=== PATIENT | female | born 1950 | race Caucasian/White ===

== ENCOUNTER → 2021-03-15 10:35 | Outpatient (CLI) | payer MEDICARE, OTHER, SELFPAY ==
[2021-03-15 19:02] LABS: Add Manual Diff / Slide Review NO; Basophils Absolute Auto 0 /uL (0-100); Basophils Percent Auto 0.6 % (0-2); Eosinophils Absolute Auto 200 /uL (0-450); Hematocrit 38.5 % (36-46); Hemoglobin 12.8 g/dL (12.0-16.0); Lymphocytes Absolute Auto 1400 /uL (1100-4500); Lymphocytes Percent Auto 24.8 % (25-40); Mean Corpuscular HGB Conc 33.3 % (30-36); Mean Corpuscular Hemoglobin 28.5 PG (26-34); Mean Corpuscular Volume 85.4 fL (80-100); Monocytes Absolute Auto 400 /uL (0-900); Monocytes Percent Auto 7.1 % (3-14); Neutrophils Absolute Auto 3500 /uL (1500-7000); Neutrophils Percent Auto 63.5 % (50-75); Platelet Count 300 X10^3/uL (150-400); Red Cell Distribution Width 13.2 % (11.6-14.8); White Blood Cell Count 5.5 X10^3/uL (4.5-11.0)
[2021-03-15 19:15] LABS: Alanine Aminotransferase 13 IU/L (<35); Albumin 3.9 g/dL (3.5-5.0); Albumin Globulin Ratio 1.6 (1.0-2.8); Alkaline Phosphatase 76 U/L (38-126); Aspartate Aminotransferase 27 IU/L (14-36); BUN Creatinine Ratio 16.4 (6-22); Bilirubin Total 0.5 mg/dL (0.2-1.3); Blood Urea Nitrogen 11 mg/dL (7-17); Calcium 9.6 mg/dL (8.4-10.2); Carbon Dioxide 29 mmol/L (22-32); Chloride 105 mmol/L (98-107); Cholesterol 230 mg/dL (140-199); Estimated Glomerular Filt Rate > 60.0 mL/min (>60); Globulin 2.4 g/dL (1.7-4.1); Glucose 81 mg/dL (80-110); HDL Cholesterol 59 mg/dL (40-60); HEMOLYSIS < 15 (0-50); LDL Cholesterol Calculated 159 mg/dL (<100); Potassium 4.6 mmol/L (3.4-5.1); Sodium 140 mmol/L (137-145); Total Protein 6.3 g/dL (6.3-8.2); Triglycerides 60 mg/dL (35-150)
== END ==
PROVIDERS: Family Provider Family Medicine; PCP Family Medicine; Visit Provider Family Medicine
DX: K58.9 Irritable bowel syndrome, unspecified (principal); E78.5 Hyperlipidemia, unspecified
CPT/HCPCS: 80053; 80061; 85025

== ENCOUNTER → 2021-04-19 13:51 | Outpatient (CLI) | payer MEDICARE, OTHER, SELFPAY ==
--- NOTE | 2021-04-19 13:54 | DI.RAD.S_ITS ---
PROCEDURE: XR LUMBAR SPINE 2-3V INDICATIONS: progressive lower back pain with right-sided subjective sci TECHNIQUE: 3 views of the lumbar spine were acquired. COMPARISON: [facility] [place] [facility], XR LUMBAR SPINE FLEXION EXTENSION, 11/12/2019, 11:14. FINDINGS: Bones: 5 [id number] vertebrae are present. There is prominent leftward scoliotic curvature with apex at L3. Multilevel disc space narrowing is present. Multilevel moderate to severe foraminal narrowing is present throughout the lumbar spine. Foraminal narrowing appears more prominent when compared to 11/12/2019. No vertebral body compression fractures. No suspicious bony lesions. Soft tissues: Overlying bowel gas pattern is normal. No suspicious soft tissue calcifications. IMPRESSION: More prominent appearance of multilevel foraminal narrowing compared to prior exam. Dictated by: Consuelo Joshi M.D. on 04/19/2021 at 15:44 Approved by: Consuelo Joshi M.D. on 04/19/2021 at 15:45
--- NOTE | 2021-04-19 13:54 | DI.RAD.S_ITS ---
PROCEDURE: XR THORACIC SPINE 3V INDICATIONS: progressive lower back pain with right-sided subjective sci TECHNIQUE: 3 views of the thoracic spine were acquired. COMPARISON: None. FINDINGS: Bones: No fractures or dislocations. No suspicious bony lesions. 12 pairs of ribs are noted, and appear intact where visualized. Scoliotic curvature is present with apex at L3. Multilevel degenerative narrowing is present within the thoracic spine. Soft tissues: No paravertebral stripe thickening. IMPRESSION: Scoliotic curvature as above. Dictated by: oCnsuelo Joshi M.D. on 04/19/2021 at 15:46 Approved by: Consuelo Joshi M.D. on 04/19/2021 at 15:47
[2021-04-19 16:15] LABS: C-Reactive Protein Quant 1.3 mg/dL (<1.0)
[2021-04-19 16:21] LABS: Rheumatoid Factor < 8.6 IU/mL (<12.0)
== END ==
PROVIDERS: Family Provider Family Medicine; PCP Family Medicine; Referring Provider Family Medicine; Visit Provider Family Medicine
DX: M41.9 Scoliosis, unspecified (principal); M43.06 Spondylolysis, lumbar region; R26.89 Other abnormalities of gait and mobility
CPT/HCPCS: 36415; 72072; 72100; 86140; 86430

== ENCOUNTER → 2021-07-26 08:12 | Outpatient (CLI) | payer MEDICARE, OTHER, SELFPAY ==
[2021-07-26 19:50] LABS: COVID19 - ORCAS (NP or Nasal) Negative (Negative)
== END ==
PROVIDERS: Family Provider Family Medicine; PCP Family Medicine; Visit Provider Physician Assistant Medical
DX: Z20.822 Contact with and (suspected) exposure to COVID-19 (principal)
CPT/HCPCS: C9803; U0003

== ENCOUNTER → 2021-09-19 09:29 | Outpatient (CLI) | payer MEDICARE, OTHER, SELFPAY ==
[2021-09-19 19:39] LABS: Cholesterol 155 mg/dL (140-199); HDL Cholesterol 55 mg/dL (40-60); LDL Cholesterol Calculated 85 mg/dL (<100); Triglycerides 76 mg/dL (35-150)
== END ==
PROVIDERS: Family Provider Family Medicine; PCP Family Medicine; Visit Provider Family Medicine
DX: E78.00 Pure hypercholesterolemia, unspecified (principal)
CPT/HCPCS: 80061

== ENCOUNTER → 2021-12-13 11:20 | Outpatient (CLI) | payer MEDICARE, OTHER, SELFPAY ==
[2021-12-13 19:06] LABS: Add Manual Diff / Slide Review NO; Basophils Absolute Auto 0 /uL (0-100); Basophils Percent Auto 0.6 % (0-2); Eosinophils Absolute Auto 300 /uL (0-450); Eosinophils Percent Auto 4.1 % (2-4); Hematocrit 38.7 % (36-46); Hemoglobin 13.1 g/dL (12.0-16.0); Lymphocytes Absolute Auto 1800 /uL (1100-4500); Lymphocytes Percent Auto 26.2 % (25-40); Mean Corpuscular HGB Conc 33.9 % (30-36); Mean Corpuscular Hemoglobin 29.1 PG (26-34); Mean Corpuscular Volume 85.8 fL (80-100); Monocytes Absolute Auto 500 /uL (0-900); Monocytes Percent Auto 7.3 % (3-14); Neutrophils Absolute Auto 4200 /uL (1500-7000); Neutrophils Percent Auto 61.8 % (50-75); Platelet Count 283 X10^3/uL (150-400); Red Blood Cell Count 4.51 X10^6/uL (4.0-5.2); Red Cell Distribution Width 13.5 % (11.6-14.8); White Blood Cell Count 6.7 X10^3/uL (4.5-11.0)
[2021-12-13 19:25] LABS: Alanine Aminotransferase 14 IU/L (<35); Albumin Globulin Ratio 1.6 (1.0-2.8); Alkaline Phosphatase 67 U/L (38-126); Aspartate Aminotransferase 27 IU/L (14-36); BUN Creatinine Ratio 12.3 (6-22); Bilirubin Total 0.5 mg/dL (0.2-1.3); Blood Urea Nitrogen 8 mg/dL (7-17); Calcium 9.2 mg/dL (8.4-10.2); Carbon Dioxide 31 mmol/L (22-32); Chloride 105 mmol/L (98-107); Estimated Glomerular Filt Rate > 60.0 mL/min (>60); Globulin 2.5 g/dL (1.7-4.1); Glucose 86 mg/dL (80-110); HEMOLYSIS < 15 (0-50); Potassium 4.1 mmol/L (3.4-5.1); Sodium 140 mmol/L (137-145); Total Protein 6.5 g/dL (6.3-8.2)
[2021-12-13 19:55] LABS: TSH w/ Reflex to FT4 2.12 uIU/mL (0.47-4.68)
== END ==
PROVIDERS: Family Provider Family Medicine; PCP Family Medicine; Visit Provider Physician Assistant
DX: K58.9 Irritable bowel syndrome, unspecified (principal); E78.5 Hyperlipidemia, unspecified; R63.4 Abnormal weight loss
CPT/HCPCS: 80053; 84443; 85025

== ENCOUNTER → 2021-12-19 14:43 | Outpatient (CLI) | payer MEDICARE, OTHER, SELFPAY | PROVIDERS: Family Provider Family Medicine; PCP Family Medicine; Referring Provider Physician Assistant; Visit Provider Physician Assistant | DX: M81.0 Age-related osteoporosis without current pathological fracture (principal); Z13.820 Encounter for screening for osteoporosis; Z78.0 Asymptomatic menopausal state | CPT/HCPCS: 77080 ==

== ENCOUNTER → 2022-01-03 09:59 | Outpatient (CLI) | payer MEDICARE, OTHER, SELFPAY ==
[2022-01-03 18:58] LABS: Add Manual Diff / Slide Review NO; Basophils Absolute Auto 0 /uL (0-100); Basophils Percent Auto 0.6 % (0-2); Eosinophils Absolute Auto 200 /uL (0-450); Eosinophils Percent Auto 4.2 % (2-4); Hematocrit 37.1 % (36-46); Hemoglobin 12.7 g/dL (12.0-16.0); Lymphocytes Absolute Auto 1400 /uL (1100-4500); Lymphocytes Percent Auto 26.4 % (25-40); Mean Corpuscular HGB Conc 34.1 % (30-36); Mean Corpuscular Hemoglobin 29.2 PG (26-34); Mean Corpuscular Volume 85.5 fL (80-100); Monocytes Absolute Auto 400 /uL (0-900); Monocytes Percent Auto 7.4 % (3-14); Neutrophils Absolute Auto 3200 /uL (1500-7000); Neutrophils Percent Auto 61.4 % (50-75); Platelet Count 262 X10^3/uL (150-400); Red Blood Cell Count 4.34 X10^6/uL (4.0-5.2); Red Cell Distribution Width 13.4 % (11.6-14.8); White Blood Cell Count 5.3 X10^3/uL (4.5-11.0)
[2022-01-03 19:11] LABS: Appearance Urine UA CLEAR; Bilirubin Urine UA NEGATIVE (NEGATIVE); Color Urine UA YELLOW; Glucose Urine UA NEGATIVE (Negative); Ketones Urine UA NEGATIVE (NEGATIVE); Leukocyte Esterase Urine UA 1+ (NEGATIVE); Nitrite Urine UA NEGATIVE (Negative); Occult Blood Urine UA NEGATIVE (Negative); Protein Urine UA NEGATIVE (Negative); Urobilinogen Urine UA 0.2 E.U./dL (0.2)
[2022-01-03 19:33] LABS: RBC Urine None Seen (0-5/HPF); Squamous Epithelial Cell Urine 0-1 /HPF (0-5/HPF); WBC Urine 1-5/HPF (0-5/HPF)
[2022-01-03 19:34] LABS: Bacteria Urine Occasional (0-1); Culture Indicated Urine Specimen Cultured
== END ==
PROVIDERS: Family Provider Family Medicine; PCP Family Medicine; Visit Provider Physician Assistant Medical
DX: K29.70 Gastritis, unspecified, without bleeding (principal); K58.9 Irritable bowel syndrome, unspecified; R10.9 Unspecified abdominal pain; R11.0 Nausea
CPT/HCPCS: 81001; 83013; 85025; 87077; 87086; 87186

== ENCOUNTER → 2022-01-11 14:51 | Outpatient (CLI) | payer MEDICARE, OTHER, SELFPAY ==
[2022-01-12 19:21] LABS: Appearance Urine UA CLEAR; Bilirubin Urine UA NEGATIVE (NEGATIVE); Color Urine UA YELLOW; Glucose Urine UA NEGATIVE (Negative); Ketones Urine UA NEGATIVE (NEGATIVE); Leukocyte Esterase Urine UA NEGATIVE (NEGATIVE); Nitrite Urine UA NEGATIVE (Negative); Occult Blood Urine UA NEGATIVE (Negative); Protein Urine UA NEGATIVE (Negative); Specific Gravity Urine UA 1.015 (1.000-1.035); Urobilinogen Urine UA 0.2 E.U./dL (0.2)
[2022-01-12 19:37] LABS: Bacteria Urine None Seen; Culture Indicated Urine Cult Not Indicated; RBC Urine None Seen (0-5/HPF); WBC Urine None Seen (0-5/HPF)
== END ==
PROVIDERS: Family Provider Family Medicine; PCP Family Medicine; Visit Provider Physician Assistant Medical
DX: N39.0 Urinary tract infection, site not specified (principal)
CPT/HCPCS: 81001

== ENCOUNTER → 2022-01-18 12:33 | Outpatient (CLI) | payer MEDICARE, OTHER, SELFPAY ==
[2022-01-18 19:39] LABS: Magnesium 2.1 mg/dL (1.6-2.3)
[2022-01-18 19:56] LABS: Vitamin D 25 Hydroxy (D3) 31.8 ng/mL (30.0-100.0)
== END ==
PROVIDERS: Family Provider Family Medicine; PCP Family Medicine; Visit Provider Physician Assistant
DX: I10 Essential (primary) hypertension (principal); M81.0 Age-related osteoporosis without current pathological fracture
CPT/HCPCS: 82306; 83735

== ENCOUNTER → 2022-01-25 10:54 | Outpatient (CLI) | payer MEDICARE, OTHER, SELFPAY ==
--- NOTE | 2022-01-25 10:55 | DI.US.S_ITS ---
PROCEDURE: US ABDOMEN COMPLETE INDICATIONS: PAIN TECHNIQUE: Real-time scanning was performed of the abdominal and retroperitoneal organs, with image documentation. COMPARISON: [facility], CT, CT ABDOMEN PELVIS WITH CONTRAST, 02/05/2019, 11:34. [facility]ound, US, US ABDOMEN COMPLETE, 02/05/2019, 10:29. FINDINGS: Liver: The liver demonstrates normal size. The liver demonstrates generalized mildly increased echogenicity. This decreases ultrasound sensitivity for detection of hepatic masses. There is a right anterior liver that measures up to 13 mm. Gallbladder: No findings of gallstones or sludge are seen. The gallbladder wall is not thickened, measuring 3 mm or less. No specific pericholecystic fluid is seen. The sonographic Red sign is negative. Biliary ducts: Intrahepatic bile ducts are non-dilated. Extrahepatic bile duct caliber measures 4 mm. Normal is 6-7 mm or less in diameter, or 10 mm or less post-cholecystectomy. Pancreas: Not seen, obscured by overlying bowel gas. Spleen: Spleen is normal in size and homogeneous in echotexture. Kidneys: Kidneys are normal in size and echotexture. Right kidney measures 9.5 cm long; left kidney measures 9.4 cm long. No hydronephrosis or nephrolithiasis. No solid masses. Aorta: Visualized aorta is normal in caliber at less than 3 cm. Iliacs: Proximal common iliac arteries are normal in caliber at less than 2.5 cm. IVC: Intrahepatic inferior vena cava is patent. Miscellaneous: No free abdominal fluid. IMPRESSION: The gallbladder demonstrates a normal sonographic appearance. No biliary dilatation is seen. 1.3 cm right anterior liver cyst incidentally noted. The liver demonstrates increased echogenicity. This finding is nonspecific, yet it is most commonly attributed to fatty infiltration. Dictated by: Elder Hartmann M.D. on 01/25/2022 at 12:01 Approved by: Elder Hartmann M.D. on 01/25/2022 at 12:03
== END ==
PROVIDERS: Family Provider Family Medicine; PCP Family Medicine; Referring Provider Physician Assistant Medical; Visit Provider Physician Assistant Medical
DX: K76.89 Other specified diseases of liver (principal); R10.9 Unspecified abdominal pain; K29.70 Gastritis, unspecified, without bleeding; R11.0 Nausea
CPT/HCPCS: 76700

== ENCOUNTER → 2022-02-16 10:03 | Outpatient (CLI) | payer MEDICARE, OTHER, SELFPAY ==
[2022-02-16 18:37] LABS: Cholesterol 183 mg/dL (140-199); HDL Cholesterol 57 mg/dL (40-60); LDL Cholesterol Calculated 111 mg/dL (<100); Triglycerides 76 mg/dL (35-150)
== END ==
PROVIDERS: Family Provider Family Medicine; PCP Family Medicine; Visit Provider Physician Assistant
DX: E78.5 Hyperlipidemia, unspecified (principal)
CPT/HCPCS: 80061

== ENCOUNTER → 2022-07-18 16:10 | Outpatient (CLI) | payer MEDICARE, OTHER, SELFPAY ==
--- NOTE | 2022-07-18 | DI.MG.S_ITS ---
BILATERAL DIGITAL SCREENING MAMMOGRAM 3D/2D WITH CAD: 07/18/2022 CLINICAL: Routine screening. Family history of breast cancer. Comparison is made to exams dated: 09/03/2018 mammogram, 12/15/2012 mammogram, and 11/30/2011 mammogram - [facility]. Both breasts are heterogeneously dense, which may obscure small masses (category c / 51-75% glandular tissue). Current study was also evaluated with a Computer Aided Detection (CAD) system. There are benign calcifications in both breasts. No significant masses, calcifications, or other findings are seen in either breast. There has been no significant interval change. IMPRESSION: BENIGN There is no mammographic evidence of malignancy. A 1 year screening mammogram is recommended. Based on the Tyrer Cuzick model (a risk assessment model) the patient's lifetime risk is 5.9% and her 10 year risk is 5.4%. According to the ACR, ACS, and NCCN guidelines, an annual breast MRI exam along with mammogram is recommended if the patient's lifetime risk is 20% or greater. This exam was interpreted at Station ID: [id number]. NOTE: For mammograms, a report in lay terms will be sent to the patient. Approximately 15% of breast malignancies will not be visualized mammographically. In the management of a palpable breast mass, a negative mammogram must not discourage biopsy of a clinically suspicious lesion. Electronically Signed By: Louann santoro/severino:07/20/2022 11:39:01 letter sent: Normal Exam ACR BI-RADS Category 2: Benign Finding(s) [id number]
== END ==
PROVIDERS: Family Provider Family Medicine; PCP Family Medicine; Referring Provider Family Medicine; Visit Provider Family Medicine
DX: Z12.31 Encounter for screening mammogram for malignant neoplasm of breast (principal); Z80.3 Family history of malignant neoplasm of breast
CPT/HCPCS: 77063; 77067

== ENCOUNTER → 2022-07-19 11:12 | Outpatient (CLI) | payer MEDICARE, OTHER, SELFPAY ==
[2022-07-19 19:42] LABS: Cholesterol 215 mg/dL (140-199); HDL Cholesterol 64 mg/dL (40-60); LDL Cholesterol Calculated 136 mg/dL (<100); Triglycerides 74 mg/dL (35-150)
[2022-07-19 19:43] LABS: Alanine Aminotransferase 17 IU/L (<35); Albumin 4.2 g/dL (3.5-5.0); Albumin Globulin Ratio 1.8 (1.0-2.8); Alkaline Phosphatase 68 U/L (38-126); Aspartate Aminotransferase 30 IU/L (14-36); BUN Creatinine Ratio 16.4 (6-22); Bilirubin Total 0.7 mg/dL (0.2-1.3); Blood Urea Nitrogen 11 mg/dL (7-17); Calcium 9.2 mg/dL (8.4-10.2); Carbon Dioxide 28 mmol/L (22-32); Chloride 103 mmol/L (98-107); Estimated Glomerular Filt Rate > 60 mL/min (>60); Globulin 2.4 g/dL (1.7-4.1); Glucose 81 mg/dL (80-110); HEMOLYSIS < 15 (0-50); Potassium 4.1 mmol/L (3.4-5.1); Sodium 139 mmol/L (137-145); Total Protein 6.6 g/dL (6.3-8.2)
== END ==
PROVIDERS: Physician Assistant; Family Provider Family Medicine; PCP Family Medicine; Visit Provider Family Medicine
DX: E78.5 Hyperlipidemia, unspecified (principal); E78.00 Pure hypercholesterolemia, unspecified; I10 Essential (primary) hypertension
CPT/HCPCS: 80053; 80061

== ENCOUNTER → 2022-07-20 10:13 | Outpatient (CLI) | payer MEDICARE, OTHER, SELFPAY | PROVIDERS: Family Provider Family Medicine; PCP Family Medicine; Visit Provider Physician Assistant Medical | DX: N23 Unspecified renal colic (principal) | CPT/HCPCS: 87077; 87086; 87186 ==

== ENCOUNTER → 2022-08-03 14:20 | Outpatient (CLI) | payer MEDICARE, OTHER, SELFPAY | PROVIDERS: Family Provider Family Medicine; PCP Family Medicine; Visit Provider Physician Assistant Medical | DX: N23 Unspecified renal colic (principal); N39.0 Urinary tract infection, site not specified | CPT/HCPCS: 87086 ==

== ENCOUNTER → 2022-09-05 14:18 | Outpatient (CLI) | payer MEDICARE, OTHER, SELFPAY ==
[2022-09-05 19:48] LABS: Appearance Urine UA CLEAR; Bilirubin Urine UA NEGATIVE (NEGATIVE); Color Urine UA YELLOW; Glucose Urine UA NEGATIVE (Negative); Ketones Urine UA NEGATIVE (NEGATIVE); Leukocyte Esterase Urine UA NEGATIVE (NEGATIVE); Nitrite Urine UA NEGATIVE (Negative); Occult Blood Urine UA NEGATIVE (Negative); Protein Urine UA NEGATIVE (Negative); Urobilinogen Urine UA 0.2 E.U./dL (0.2)
[2022-09-05 20:02] LABS: Bacteria Urine None Seen; Culture Indicated Urine Cult Not Indicated; RBC Urine None Seen (0-5/HPF); Squamous Epithelial Cell Urine 0-1 /HPF (0-5/HPF); WBC Urine None Seen (0-5/HPF)
== END ==
PROVIDERS: Family Provider Family Medicine; PCP Family Medicine; Visit Provider Physician Assistant Medical
DX: N39.0 Urinary tract infection, site not specified (principal)
CPT/HCPCS: 81001

== ENCOUNTER → 2022-09-18 10:48 | Outpatient (CLI) | payer MEDICARE, OTHER, SELFPAY | PROVIDERS: Family Provider Family Medicine; PCP Family Medicine; Visit Provider Physician Assistant | DX: N39.0 Urinary tract infection, site not specified (principal) | CPT/HCPCS: 87086 ==

== ENCOUNTER → 2022-10-03 11:24 | Outpatient (CLI) | payer MEDICARE, OTHER, SELFPAY | PROVIDERS: Family Provider Family Medicine; PCP Family Medicine; Visit Provider Physician Assistant Medical | DX: N39.0 Urinary tract infection, site not specified (principal) | CPT/HCPCS: 87086 ==

== ENCOUNTER → 2022-11-08 11:48 | Outpatient (CLI) | payer MEDICARE, OTHER, SELFPAY ==
[2022-11-09 08:25] LABS: Alanine Aminotransferase 19 IU/L (<35); Albumin 3.9 g/dL (3.5-5.0); Albumin Globulin Ratio 1.6 (1.0-2.8); Alkaline Phosphatase 73 U/L (38-126); Aspartate Aminotransferase 28 IU/L (14-36); Bilirubin Total 0.3 mg/dL (0.2-1.3); Bilirubin Unconjugated 0.1 mg/dL (0.0-1.1); Globulin 2.5 g/dL (1.7-4.1); HEMOLYSIS < 15 (0-50); Total Protein 6.4 g/dL (6.3-8.2)
== END ==
PROVIDERS: Family Provider Family Medicine; PCP Family Medicine; Visit Provider Family Medicine
DX: B37.0 Candidal stomatitis (principal); R10.11 Right upper quadrant pain
CPT/HCPCS: 80076; 87102

== ENCOUNTER → 2022-12-03 12:57 | Outpatient (CLI) | payer MEDICARE, OTHER, SELFPAY ==
[2022-12-03 21:33] LABS: Vitamin D 25 Hydroxy (D3) 34.4 ng/mL (30.0-100.0)
[2022-12-03 23:58] LABS: Vitamin B12 975 pg/mL (239-931)
[2022-12-05 19:50] LABS: Zinc 82 ug/dL (44-115)
[2022-12-06 15:08] LABS: ANA Screen, IFA Negative (.)
[2022-12-09 04:41] LABS: Nicotinamide 8.9 ng/mL (5.2-72.1); Nicotinic Acid <5.0 ng/mL (0.0-5.0)
== END ==
PROVIDERS: Family Provider Family Medicine; PCP Family Medicine; Visit Provider Family Medicine
DX: M81.0 Age-related osteoporosis without current pathological fracture (principal); H04.123 Dry eye syndrome of bilateral lacrimal glands; K11.7 Disturbances of salivary secretion; R43.2 Parageusia
CPT/HCPCS: 82306; 82607; 84591; 84630; 86038

== ENCOUNTER → 2023-08-08 13:28 | Outpatient (CLI) | payer MEDICARE, OTHER, SELFPAY ==
[2023-08-08 19:25] LABS: Blood Urea Nitrogen 12 mg/dL (7-17); Calcium 9.7 mg/dL (8.4-10.2); Carbon Dioxide 29 mmol/L (22-32); Chloride 101 mmol/L (98-107); Estimated Glomerular Filt Rate > 60 mL/min (>60); Glucose 84 mg/dL (80-110); HEMOLYSIS < 15 (0-50); Potassium 4.3 mmol/L (3.4-5.1); Sodium 137 mmol/L (137-145)
[2023-08-08 19:32] LABS: Add Manual Diff / Slide Review NO; Basophils Absolute Auto 100 /uL (0-100); Basophils Percent Auto 0.9 % (0-2); Eosinophils Absolute Auto 200 /uL (0-450); Eosinophils Percent Auto 2.9 % (2-4); Hematocrit 36.4 % (36-46); Hemoglobin 12.3 g/dL (12.0-16.0); Lymphocytes Absolute Auto 1600 /uL (1100-4500); Lymphocytes Percent Auto 26.4 % (25-40); Mean Corpuscular HGB Conc 33.9 % (30-36); Mean Corpuscular Hemoglobin 29.9 PG (26-34); Monocytes Absolute Auto 500 /uL (0-900); Monocytes Percent Auto 7.6 % (3-14); Neutrophils Absolute Auto 3800 /uL (1500-7000); Neutrophils Percent Auto 62.2 % (50-75); Platelet Count 284 X10^3/uL (150-400); Red Blood Cell Count 4.13 X10^6/uL (4.0-5.2); Red Cell Distribution Width 12.2 % (11.6-14.8); White Blood Cell Count 6.1 X10^3/uL (4.5-11.0)
[2023-08-08 19:58] LABS: TSH w/ Reflex to FT4 1.24 uIU/mL (0.47-4.68)
[2023-08-08 20:11] LABS: Vitamin B12 920 pg/mL (239-931)
[2023-08-14 18:33] LABS: ANA Screen, IFA Negative (.)
== END ==
PROVIDERS: Family Provider Family Medicine; PCP Family Medicine; Visit Provider Family Medicine
DX: R11.0 Nausea (principal); R53.83 Other fatigue; R51.9 Headache, unspecified; H04.123 Dry eye syndrome of bilateral lacrimal glands; K11.7 Disturbances of salivary secretion; R43.2 Parageusia
CPT/HCPCS: 80048; 82607; 84443; 85025; 86038

== ENCOUNTER → 2023-08-22 14:15 | Outpatient (CLI) | payer MEDICARE, OTHER, SELFPAY ==
--- NOTE | 2023-08-22 14:16 | DI.CT.S_ITS ---
PROCEDURE: CT HEAD/BRAIN WO CON INDICATIONS: headache, fatigue, nausea TECHNIQUE: Noncontrast 4.5 mm thick angled axial sections acquired from the foramen magnum to the vertex, with coronal and sagittal reformats. For radiation dose reduction, the following was used: automated exposure control, adjustment of mA and/or kV according to patient size. COMPARISON: [facility] , CT, SINUS W/O CONTRAST, 04/19/2011, 14:37. FINDINGS: Image quality: Mild streak artifact can be seen through the skull base. CSF spaces: Basal cisterns are patent. No extra-axial fluid collections. The ventricles are symmetric in size and shape. Brain: No intracranial bleeds or masses. There is cerebral volume loss for age, with resultant ventricular and sulcal prominence. There are periventricular and deep white matter chronic small vessel ischemic changes. There is intracranial internal carotid artery atherosclerosis. Skull and face: Calvarium and visualized facial bones appear intact, without suspicious lesions. Sinuses: Visualized sinuses and mastoids are clear. IMPRESSION: Noncontrast head CT within normal limits for age, without a cause of the patient's presenting history identified. Dictated by: Elder Hartmann M.D. on 08/22/2023 at 14:04 Approved by: Elder Hartmann M.D. on 08/22/2023 at 14:05
== END ==
PROVIDERS: Family Provider Family Medicine; PCP Family Medicine; Referring Provider Family Medicine; Visit Provider Family Medicine
DX: R51.9 Headache, unspecified (principal); R11.0 Nausea; R53.83 Other fatigue
CPT/HCPCS: 70450

== ENCOUNTER → 2023-08-23 09:10 | Outpatient (CLI) | payer MEDICARE, OTHER, SELFPAY ==
--- NOTE | 2023-08-23 | DI.MG.S_ITS ---
BILATERAL DIGITAL SCREENING MAMMOGRAM 3D/2D WITH CAD: 08/23/2023 CLINICAL: Routine screening. Family history of breast cancer. Comparison is made to exams dated: 07/18/2022 mammogram - [facility], 09/03/2018 mammogram, and 12/15/2012 mammogram - [facility]. Both breasts are heterogeneously dense, which may obscure small masses (category c / 51-75% glandular tissue). Current study was also evaluated with a Computer Aided Detection (CAD) system. There are benign calcifications in both breasts. No significant masses, calcifications, or other findings are seen in either breast. There has been no significant interval change. IMPRESSION: BENIGN There is no mammographic evidence of malignancy. A 1 year screening mammogram is recommended. Based on the Tyrer Cuzick model (a risk assessment model) the patient's lifetime risk is 5.5% and her 10 year risk is 5.5%. According to the ACR, ACS, and NCCN guidelines, an annual breast MRI exam along with mammogram is recommended if the patient's lifetime risk is 20% or greater. This exam was interpreted at Station ID: [id number]. NOTE: For mammograms, a report in lay terms will be sent to the patient. Approximately 15% of breast malignancies will not be visualized mammographically. In the management of a palpable breast mass, a negative mammogram must not discourage biopsy of a clinically suspicious lesion. Electronically Signed By: Benjamin potts/severino:08/23/2023 19:52:45 letter sent: Normal Exam ACR BI-RADS Category 2: Benign Finding(s) [id number]
== END ==
PROVIDERS: Family Provider Family Medicine; PCP Family Medicine; Referring Provider Family Medicine; Visit Provider Family Medicine
DX: Z12.31 Encounter for screening mammogram for malignant neoplasm of breast (principal); Z80.3 Family history of malignant neoplasm of breast
CPT/HCPCS: 77063; 77067

== ENCOUNTER → 2023-09-19 13:33 | Outpatient (CLI) | payer MEDICARE, OTHER, SELFPAY ==
[2023-09-24 09:55] LABS: Alder IgE <0.10 kU/L (Class 0); Alternaria alternata IgE <0.10 kU/L (Class 0); Aspergillus fumigatus IgE <0.10 kU/L (Class 0); Box Elder IgE <0.10 kU/L (Class 0); Cat Dander IgE <0.10 kU/L (Class 0); Cladosporium herbarum IgE <0.10 kU/L (Class 0); Cockroach IgE <0.10 kU/L (Class 0); Cottonwood IgE <0.10 kU/L (Class 0); D farinae IgE <0.10 kU/L (Class 0); D pteronyssinus IgE <0.10 kU/L (Class 0); Dog Dander IgE <0.10 kU/L (Class 0); Elm Tree IgE <0.10 kU/L (Class 0); IgE Mugwort <0.10 kU/L (Class 0); IgE Thistle,Russian <0.10 kU/L (Class 0); Immunoglobulin E 36 IU/mL (6-495); Mountain Cedar IgE <0.10 kU/L (Class 0); Mouse Urine Proteins IgE <0.10 kU/L (Class 0); Oak Tree IgE <0.10 kU/L (Class 0); Penicillium chrysogen IgE <0.10 kU/L (Class 0); Pigweed, Common IgE <0.10 kU/L (Class 0); Sheep Sorrel IgE <0.10 kU/L (Class 0); Silver Birch IgE <0.10 kU/L (Class 0); Timothy Grass IgE <0.10 kU/L (Class 0)
== END ==
PROVIDERS: Family Provider Family Medicine; PCP Family Medicine; Visit Provider Family Medicine
DX: J31.0 Chronic rhinitis (principal); R51.9 Headache, unspecified; R53.83 Other fatigue
CPT/HCPCS: 82785; 86003

== ENCOUNTER → 2023-10-03 15:35 | Outpatient (CLI) | payer MEDICARE, OTHER, SELFPAY | PROVIDERS: Family Provider Family Medicine; PCP Family Medicine; Visit Provider Family Medicine | DX: R39.89 Other symptoms and signs involving the genitourinary system (principal) | CPT/HCPCS: 87077; 87086; 87186 ==

== ENCOUNTER → 2024-02-25 11:09 | Outpatient (CLI) | payer MEDICARE, OTHER, SELFPAY | PROVIDERS: Family Provider Family Medicine; PCP Family Medicine; Visit Provider Physician Assistant Medical | DX: K14.6 Glossodynia (principal) | CPT/HCPCS: 87070; 87075; 87205 ==

== ENCOUNTER → 2024-03-25 12:14 | Outpatient (CLI) | payer MEDICARE, OTHER, SELFPAY ==
--- NOTE | 2024-03-25 12:16 | DI.MRI.S_ITS ---
PROCEDURE: MR LUMBAR SPINE WO CON INDICATIONS: pain radiating L5 bilaterally TECHNIQUE: Noncontrast sagittal T1 spin echo and T2 fast echo, sagittal STIR, and T2 fast spin echo through the lumbar spine. In cases with scoliosis, additional coronal T2 fast spin echo may be performed. COMPARISON: None. FINDINGS: Image quality: Excellent. Alignment and Curvature: There is severe levocurvature centered at L3-L4. Trace retrolisthesis of T12 on L1. Trace anterolisthesis of L3 on L4. 6 mm anterolisthesis L4 on L5. Bone Marrow: Marrow is of normal overall signal. No acute vertebral body compression fractures. Spinal Cord: Conus medullaris terminates at the T12-L1 level. Visualized cord demonstrates normal signal and size. Paraspinous Soft Tissues: No paravertebral masses. T11-T12: Mild chronic disc height loss. Disc bulge. No canal stenosis. Moderate to severe left foraminal stenosis with a degree of left foraminal T11 nerve root impingement. T12-L1: Chronic disc height loss. Trace retrolisthesis. Disc bulge. Left facet hypertrophy. No canal stenosis or significant foraminal stenosis. L1-L2: Trace retrolisthesis. Disc bulge. Prominent right facet hypertrophy. No central canal stenosis. Severe right lateral recess and right foraminal narrowing with a degree of right foraminal and lateral recess L1 nerve root impingement. L2-L3: Severe right facet hypertrophy. No central canal stenosis. Moderate right foraminal narrowing. L3-L4: Chronic disc height loss. Prominent bilateral facet hypertrophy, right greater than left. Moderate to severe central canal stenosis. Severe right lateral recess stenosis. Moderate right foraminal narrowing. Left foramen is patent. L4-L5: Exuberant facet hypertrophy. Disc bulge. Severe canal stenosis. [id number] right foraminal narrowing. No significant left foraminal narrowing. L5-S1: Prominent bilateral facet hypertrophy, left greater than right. Mild disc bulge. Borderline canal stenosis. No significant foraminal stenosis. IMPRESSION: 1. Underlying severe levocurvature centered at L3-L4. 2. Multilevel underlying facet arthropathy, including severe or exuberant facet hypertrophy at multiple levels. 3. Central canal stenosis is moderate to severe at L3-L4, severe at L4-L5, and borderline at L5-S1. 4. There is severe right lateral recess stenosis at L1-L2 and L3-L4. 5. Multilevel foraminal narrowing as described above. Findings include moderate to severe left foraminal stenosis at T11-T12 and severe right foraminal stenosis at L1-L2 Dictated by: Pineda Diaz M.D. on 03/25/2024 at 13:38 Approved by: Pineda Diaz M.D. on 03/25/2024 at 13:47
--- NOTE | 2024-03-25 12:16 | DI.MRI.S_ITS ---
PROCEDURE: MRFOOT LT WO CON INDICATIONS: Severe nerve pain left foot TECHNIQUE: Multiphasic, multisequence MRI of the forefoot was performed, without intravenous contrast administration. COMPARISON: None. FINDINGS: Image quality: Excellent. Bones and joints: No bone marrow contusions or metatarsal stress fractures. The sesamoid bones appear in expected positions, without internal edema mild degenerative changes are seen at the 1st metatarsophalangeal joint with mild subchondral edema and small marginal osteophytes. Scattered mild degenerative changes of the interphalangeal joints of the toes. Focal cystic changes versus chronic erosion at the lateral 5th metatarsal head. No intraosseous lesions. Soft tissues: The visualized plantar foot muscles demonstrate normal signal and bulk. Visualized flexor and extensor tendons appear intact, without tenosynovitis. The distal insertions of the peroneus brevis and longus tendons appear intact. The principal Lisfranc ligament appears intact. Ill-defined intermediate signal intensity is seen at the interspace between the 2nd and 3rd metatarsal heads measuring approximately 5 x 2 x 9 mm. Sagittal images demonstrate no evidence for plantar plate tears. IMPRESSION: 1. Small ill-defined area of intermediate signal at the interspace between the 2nd and 3rd metatarsal heads could represent a possible small Marquez neuroma/perineural fibrosis. 2. Mild forefoot osteoarthrosis. 3. No acute trabecular bone injury. No significant ligament or tendon injury. Approved by: Bethel Ferris M.D. on 03/25/2024 at 14:54
== END ==
PROVIDERS: Family Provider Family Medicine; PCP Family Medicine; Referring Provider Family Medicine; Visit Provider Family Medicine
DX: S84.92XA Injury of unspecified nerve at lower leg level, left leg, initial encounter (principal); M19.072 Primary osteoarthritis, left ankle and foot; G61.82 Multifocal motor neuropathy; M47.26 Other spondylosis with radiculopathy, lumbar region; M47.27 Other spondylosis with radiculopathy, lumbosacral region; M48.061 Spinal stenosis, lumbar region without neurogenic claudication; M48.07 Spinal stenosis, lumbosacral region; X58.XXXA Exposure to other specified factors, initial encounter
CPT/HCPCS: 72148; 73718

== ENCOUNTER → 2024-06-23 14:17 | Outpatient (CLI) | payer MEDICARE, OTHER, SELFPAY | PROVIDERS: Family Provider Family Medicine; PCP Family Medicine; Visit Provider Physician Assistant Medical | DX: S61.432A Puncture wound without foreign body of left hand, initial encounter (principal); B99.9 Unspecified infectious disease; W50.3XXA Accidental bite by another person, initial encounter | CPT/HCPCS: 87070; 87075; 87205 ==

== ENCOUNTER → 2024-10-20 11:04 | Outpatient (CLI) | payer MEDICARE, OTHER, SELFPAY ==
--- NOTE | 2024-10-20 11:05 | DI.MG.S_ITS ---
BILATERAL DIGITAL SCREENING MAMMOGRAM 3D/2D WITH CAD: 10/20/2024 CLINICAL: Routine screening. Family history of breast cancer. Comparison is made to exams dated: 08/23/2023 mammogram, 07/18/2022 mammogram - [facility], and 09/03/2018 mammogram - [facility]. The breasts are heterogeneously dense, which may obscure small masses (category c / 51-75% glandular tissue). Current study was also evaluated with a Computer Aided Detection (CAD) system. There are benign calcifications in both breasts. No significant masses, calcifications, or other findings are seen in either breast. There has been no significant interval change. IMPRESSION: BENIGN There is no mammographic evidence of malignancy. A 1 year screening mammogram is recommended. Based on the Tyrer Cuzick model (a risk assessment model) the patient's lifetime risk is 5.1% and her 10 year risk is 0.0%. According to the ACR, ACS, and NCCN guidelines, an annual breast MRI exam along with mammogram is recommended if the patient's lifetime risk is 20% or greater. This exam was interpreted at Station ID: [id number]. NOTE: For mammograms, a report in lay terms will be sent to the patient. Approximately 15% of breast malignancies will not be visualized mammographically. In the management of a palpable breast mass, a negative mammogram must not discourage biopsy of a clinically suspicious lesion. Electronically Signed By: Bethel elizondo/severino:10/20/2024 16:37:47 letter sent: Normal Exam ACR BI-RADS Category 2: Benign
== END ==
PROVIDERS: Family Provider Family Medicine; PCP Family Medicine; Referring Provider Family Medicine; Visit Provider Family Medicine
DX: Z12.31 Encounter for screening mammogram for malignant neoplasm of breast (principal); R92.333 Mammographic heterogeneous density, bilateral breasts; Z80.3 Family history of malignant neoplasm of breast
CPT/HCPCS: 77063; 77067

== ENCOUNTER → 2025-02-22 08:26 | Outpatient (CLI) | payer MEDICARE, OTHER, SELFPAY ==
[2025-02-22 19:19] LABS: Add Manual Diff / Slide Review NO; Basophils Absolute Auto 0 /uL (0-100); Basophils Percent Auto 0.5 % (0-2); Eosinophils Absolute Auto 300 /uL (0-450); Eosinophils Percent Auto 4.1 % (2-4); Hematocrit 38.7 % (36-46); Hemoglobin 13.1 g/dL (12.0-16.0); Lymphocytes Absolute Auto 1500 /uL (1100-4500); Lymphocytes Percent Auto 23.7 % (25-40); Mean Corpuscular HGB Conc 33.9 % (30-36); Mean Corpuscular Hemoglobin 30.3 PG (26-34); Mean Corpuscular Volume 89.3 fL (80-100); Monocytes Absolute Auto 600 /uL (0-900); Neutrophils Absolute Auto 4100 /uL (1500-7000); Neutrophils Percent Auto 62.7 % (50-75); Platelet Count 286 X10^3/uL (150-400); Red Blood Cell Count 4.33 X10^6/uL (4.0-5.2); Red Cell Distribution Width 13.8 % (11.6-14.8); White Blood Cell Count 6.4 X10^3/uL (4.5-11.0)
[2025-02-22 19:31] LABS: BUN Creatinine Ratio 20.3 (6-22); Blood Urea Nitrogen 13 mg/dL (7-17); Calcium 8.9 mg/dL (8.4-10.2); Carbon Dioxide 28 mmol/L (22-32); Chloride 106 mmol/L (98-107); Cholesterol 252 mg/dL (140-199); Estimated Glomerular Filt Rate > 60 mL/min (>60); Glucose 86 mg/dL (70-99); HDL Cholesterol 64 mg/dL (40-60); HEMOLYSIS 23 (0-50); LDL Cholesterol Calculated 169 mg/dL (<100); Potassium 4.5 mmol/L (3.4-5.1); Sodium 137 mmol/L (137-145); Triglycerides 95 mg/dL (35-150)
[2025-02-22 19:34] LABS: Erythrocyte Sedimentation Rate 5 MM/HR (0-20)
[2025-02-22 19:38] LABS: C-Reactive Protein Quant < 0.5 mg/dL (<1.0)
== END ==
PROVIDERS: Family Provider Family Medicine; PCP Family Medicine; Visit Provider Family Medicine
DX: E78.00 Pure hypercholesterolemia, unspecified (principal); K21.9 Gastro-esophageal reflux disease without esophagitis; L30.9 Dermatitis, unspecified; I73.00 Raynaud's syndrome without gangrene; K11.7 Disturbances of salivary secretion; L28.0 Lichen simplex chronicus; H04.123 Dry eye syndrome of bilateral lacrimal glands
CPT/HCPCS: 80048; 80061; 85025; 85651; 86038; 86140

== ENCOUNTER → 2025-06-22 10:56 | Outpatient (CLI) | payer MEDICARE, OTHER, SELFPAY ==
--- NOTE | 2025-06-22 10:59 | DI.MRI.S_ITS ---
PROCEDURE: MRFOOT LT WO CON INDICATIONS: neuropathy left ft, suspect med cutaneous or deep peroneal TECHNIQUE: Multiphasic, multisequence MRI of the forefoot was performed, without intravenous contrast administration. COMPARISON: [facility], , MR FOOT LT WO CON, 03/25/2024, 13:22. FINDINGS: Quality: Adequate Bones: No fracture. No bone marrow edema. Joints: Mild degenerative changes of the 1st metatarsophalangeal joint with small effusion. Plantar plates are intact. Lisfranc ligament is intact. Tendons: No tendon tear. No tenosynovitis. Plantar fascia: Unremarkable. Other soft tissue: No discrete fluid collection. Nodular loss of fat signal between the 2nd and 3rd metatarsal heads, slightly more conspicuous on the current examination. 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 Dictated by: Reese Duron M.D. on 06/22/2025 at 14:11 Approved by: Reese Duron M.D. on 06/22/2025 at 14:19
== END ==
LOC: MRI 10:59
PROVIDERS: Family Provider Family Medicine; PCP Family Medicine; Referring Provider Family Medicine; Visit Provider Family Medicine
DX: G57.92 Unspecified mononeuropathy of left lower limb (principal); M19.072 Primary osteoarthritis, left ankle and foot
CPT/HCPCS: 73718

== ENCOUNTER 2025-06-24 13:53 | Emergency (ER) | payer MEDICARE, OTHER, SELFPAY ==
[2025-06-24 14:05] VITALS: BP 190/88; PULSE 72; RESP 98; TEMP 37; O2SAT 99; BMI 19.5
--- NOTE | 2025-06-24 14:14 | ED_ITS ---
HPI - Headache General Chief Complaint: Headache Stated Complaint: Flashes behind head x 3 weeks Time Seen by Provider: 06/24/25 14:06 Mode of arrival: Ambulatory History of Present Illness HPI Narrative: 75-year-old female presents with flashes of light on the right eye past few weeks and left IC is a star at nighttime for the past few days but denies any headache, dizziness, lightheadedness, weakness, in the arms or legs difficulty speaking, swallowing, or gait instability. Patient denies chest pain, cough, runny nose, sore throat, nausea, vomiting, diarrhea, fever, chills, body aches, stiff neck, rash. Other than what is stated 14 point review system is negative. Related Data Home Medications ?Medication ?Instructions ?Recorded ?Confirmed omeprazole 20 mg capsule,delayed 20 mg PO DAILY PRN 06/11/25 release Previous Rx's ?Medication ?Instructions ?Recorded cholecalciferol (vitamin D3) 25 25 mcg PO DAILY #90 ca ps 01/05/22 mcg (1,000 unit) capsule albuterol sulfate 90 mcg/actuation See Rx Instructions .Route 08/21/23 aerosol inhaler (ProAir HFA) .COMPLEX #8.5 grams ibandronate 150 mg tablet 150 mg PO QMONTH #3 tabs 12/29 hydroxyzine HCl 10 mg tablet 10 mg PO ONCE PRN itching #90 tabs 02/22/25 montelukast 10 mg tablet 10 mg PO DAILY #90 tabs 12/01 (Singulair) fluticasone 250 mcg-salmeterol 50 1 inh inhalation BID #180 ea 03/12/25 mcg/dose blistr powdr for inhalation betamethasone valerate 0.1 % 1 applic topical DAILY [place] N itching 04/19/25 topical cream #45 grams buspirone 5 mg tablet See Rx Instructions PO BID # 60 tabs 04/30/25 dicyclomine 20 mg tablet 20 mg PO QID PRN abdominal p ain 05/03/25 #90 tabs fluocinonide 0.05 % topical 1 applic topical BID #20 m L 05/11/25 solution Allergies Allergy/AdvReac Type Severity Reaction Status Date / Time Sulfa (Sulfonamide Allergy Intermediate Nausea Verified 06/24/25 14:05 Antibiotics) grass pollen Allergy Mild Sneezing Verified 06/24/25 14:05 house dust mite Allergy Mild Sneezing Verified 06/24/25 14:05 Pork/Porcine Containing Allergy Mild Diarrhea Verified 06/24/25 14:05 Products tree and shrub pollen Allergy Mild Sneezing Verified 06/24/25 14:05 walnut Allergy Mild Blister Verified 06/24/25 14:05 dextromethorphan Allergy Unknown Nausea Verified 06/24/25 14:05 naproxen Allergy Unknown Nausea Verified 06/24/25 14:05 Penicillins Allergy Unknown Verified 06/24/25 14:05 amitriptyline AdvReac Intermediate Drowsy Verified 06/24/25 14:05 gabapentin AdvReac Intermediate Drowsy Verified 06/24/25 14:05 Review of Systems Review of Systems ROS Unobtainable: All systems reviewed & are unremarkable except as noted in HPI and below Patient History Medical History (Updated 06/24/25 @ 15:02 by Ghanshyam Delong DO) Hyperlipidemia Occipital neuralgia Scoliosis (~2017) Measles (~1953) Chicken pox (~1953) Surgical History Anesthesia History of colonoscopy History of tonsillectomy (~1959) History of cataract removal with insertion of prosthetic lens (~2013) History of hysterectomy (~1990) Family History Mother Hypertension Arthritis Grandfather History of heart disease Stroke Grandmother Arthritis Social History Smoking Status: Never smoker Smoking Status: Never smoker Exam Narrative Exam Narrative: GENERAL: [75 year old patient appears stated age. Well-developed patient, in mild distress. HEAD: Atraumatic. Normocephalic. EYES: Pupils equal round and reactive. Extraocular motions intact. No scleral icterus. No injection or drainage. ENT: Nose without bleeding, purulent drainage. Throat without erythema, tonsillar hypertrophy or exudate. Airway patent. NECK: Trachea midline. Non tender CARDIOVASCULAR: Regular rate and rhythm without murmurs, gallops, or rubs. RESPIRATORY: Clear to auscultation. Breath sounds equal bilaterally. No wheezes, rales, or rhonchi. GASTROINTESTINAL: Abdomen soft, non-tender, nondistended. EXTREMITIES: No edema or joint tenderness. BACK: Nontender without deformity or crepitance. No flank tenderness. NEURO: AOx3. SKIN: No rash or erythema of visible areas Initial Vital Signs Initial Vital Signs: Vital Signs Temperature 98.6 F 06/24/25 14:05 Pulse Rate 72 06/24/25 14:05 Respiratory Rate 98 H 06/24/25 14:05 Blood Pressure 190/88 H 06/24/25 14:05 Pulse Oximetry 99 06/24/25 14:05 Oxygen Delivery Method Room Air 06/24/25 14:05 Course Orders Ordered: ED Orders 06/24/25 14:[address] angio head and neck Stat COVID19 -Nasal RAPID Stat Complete Blood Count AUTO DIFF Stat Comprehensive Metabolic Panel Stat PTT Partial Thromboplastin R[place]hawn Stat Prothrombin Time INR Stat Troponin & CK Cardiac Panel Stat Urinalysis and Microscopic Stat Urine Drug Screen, Rapid Stat EKG-12 Lead Stat Vital Signs Vital signs: Vital Signs - 8 hr 06/24/25 14:05 Temperature 98.6 F Pulse Rate 72 Respiratory Rate 98 H Blood Pressure 190/88 H Pulse Oximetry 99 Oxygen Delivery Method Room Air MDM - Headache Imaging Data CT scan - head: Radiologist's Impression: [place] [address] CT Scan Report Signed Patient: Magdalena Majano MR#: [id number] : 1950 Acct:[id number] Age/Sex: 75 / F Date of Service: 06/24/25 Loc: ED Accession Number: [id number] Procedure: CT Stroke Ordering Provider: Ghanshyam Delong D.O. PROCEDURE: CT STROKE INDICATIONS: headache visiual disturbance TECHNIQUE: Noncontrast 4.5 mm thick angled axial sections acquired from the foramen magnum to the vertex, with coronal reformats. For radiation dose reduction, the following was used: automated exposure control, adjustment of mA and/or kV according to patient size. COMPARISON: None. FINDINGS: Image quality: Diagnostic. CSF spaces: Basal cisterns are patent. No extra-axial fluid collections. Ventricles are normal in size and shape. Brain: No midline shift. No intracranial mass effect or hemorrhage. Reyes- white matter interface is normal. Skull and face: Calvarium and visualized facial bones are intact, without suspicious lesions. Sinuses: Visualized sinuses and mastoids are clear. IMPRESSION: No acute intracranial pathology. Communication: The above impression was discussed with the ordering clinician, Dr. Delong of the [facility] emergency room, by Dr. Hopkins via telephone on 06/24/2025 at 2:44 p.m. This study fulfills neurological imaging criteria for inclusion or exclusion of acute stroke therapies based on available published neurological imaging guidelines. Dictated by: Pawan Hopkins M.D. on 06/24/2025 at 14:40 Approved by: Pawan Hopkins M.D. on 06/24/2025 at 14:45 CTA - brain/neck: Radiologist's Impression: [place] [address] CT Scan Report Signed Patient: Magdalena Majano MR#: [id number] : 1950 Acct:[id number] Age/Sex: 75 / F Date of Service: 06/24/25 Loc: ED Accession Number: [id number] Procedure: CT angio head and neck Ordering Provider: Ghanshyam Delong D.O. PROCEDURE: CT ANGIO HEAD AND NECK INDICATIONS: headache visiual disturbance TECHNIQUE: After the administration of intravenous contrast, 1 mm thick sections acquired from the aortic arch through the [place] of [place]. 3-dimensional yntxalx-syojyosnq-xfrdulrtrd (MIP) and/or volume rendering reformats were acquired of the central intracranial vasculature and neck separately. For radiation dose reduction, the following was used: automated exposure control, adjustment of mA and/or kV according to patient size. COMPARISON: Same day noncontrast head CT.. FINDINGS: Image quality: Diagnostic. Cerebral CT Angiogram: Internal carotid arteries: No acute findings. Intracranial ICA are patent with no significant stenosis. No occlusion. No aneurysm. Anterior cerebral arteries: Unremarkable. No significant stenosis. No occlusion. No aneurysm. Middle cerebral arteries: Unremarkable. No significant stenosis. No occlusion. No aneurysm. Posterior cerebral arteries: Unremarkable. No significant stenosis. No occlusion. No aneurysm. Basilar artery: Unremarkable. No significant stenosis. No occlusion. No aneurysm. Vertebral arteries: Unremarkable as visualized. Dural venous sinuses: Unremarkable given phase of enhancement. Other: Arterial phase appearance of the brain parenchyma is unremarkable. Neck CT Angiogram: Internal carotid arteries: Unremarkable. No significant stenosis. No dissection or occlusion. Common carotid arteries: Unremarkable. No significant stenosis. No dissection or occlusion. External carotid arteries: Unremarkable. No occlusion. Vertebral arteries: Unremarkable. No significant stenosis. No dissection or occlusion. Aortic Arch and Mediastinum: Mild, less than 50 percent, stenosis of the left subclavian artery due to a partially calcified atherosclerotic plaque (2/304). Other: Post left hemithyroidectomy. No focal enhancing nodule in the left thyroidectomy bed. Moderately degenerated disc osteophyte complex at C4-5. IMPRESSION: 1. No significant intracranial arterial abnormality is seen. 2. No significant abnormality within the bilateral carotid and vertebral arteries. 3. Mild atherosclerotic disease within the proximal left subclavian artery. Correlate for symptoms of subclavian steal. If indicated, this could be further assessed with left upper extremity arterial Doppler on outpatient basis. Communication: The above impression was discussed with Dr. Delong of the [facility] ER by Dr. Hopkins on 06/24/2025 at 2:44pm PST. Chest x-ray: Radiologist's Impression: [place] [address] XRay Report Signed Patient: Magdalena Majano MR#: [id number] : 1950 Acct:[id number] Age/Sex: 75 / F Date of Service: 06/24/25 Loc: ED Accession Number: [id number] Procedure: XR chest 2V Ordering Provider: Ghanshyam Delong D.O. PROCEDURE: XR CHEST 2V INDICATIONS: sob TECHNIQUE: 2 views of the chest were acquired. COMPARISON: [facility] ([place]), CR, XR CHEST 2V, 06/04/2025, 15:04. [facility] ([place]), CR, XR CHEST 2V, 01/15/2024, 10:21. FINDINGS: Surgical changes and devices: None. Lungs and pleura: Lungs are clear. No pleural effusions or pneumothorax. Mediastinum: Mediastinal contours are normal. Heart size is normal. Bones and chest wall: No suspicious bony abnormalities. Soft tissues appear unremarkable. IMPRESSION: No acute cardiopulmonary abnormality is seen. MDM Narrative Medical decision making narrative: All labwork, vital signs, statistics intern note, medical list, previous ER visit all reviewed. Chest x-ray showed no acute process. CTA showed mild atherosclerotic disease in the left subclavian artery no significant intracranial abnormality seen otherwise no significant abnormality within the bilateral carotid and vertebral arteries. Differential diagnosis CVA, TIA, brain hemorrhage, mass, retinal detachment, glacoma, retinal artery occlusion, central retinal venous occlusion. Patient has follow up appointment with Ophthalmology with Dr. Phillips next week. Discharge Plan Departure Patient Disposition: Home Clinical Impression: Binocular visual disturbance Instructions: DI for Visual Field Disturbances Activity Restrictions/Additional Instructions: Return with new or worsening symptoms. 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 Prescriptions: No Action albuterol sulfate [ProAir HFA] 90 mcg/actuation HFA aerosol inhaler See Rx Instructions .ROUTE .COMPLEX Qty: 8.5 5RF Dose Instruction: INHALE 2 PUFFS BY MOUTH EVERY 4 TO 6 HOURS NEEDED FOR SHORTNESS OF BREATH OR WHEEZE Rx Instructions: INHALE 2 PUFFS BY MOUTH EVERY 4 TO 6 HOURS NEEDED FOR SHORTNESS OF BREATH OR WHEEZE ibandronate 150 mg tablet 150 mg PO QMONTH Qty: 3 3RF Rx Instructions: The patient was unable to tolerate Actonel montelukast [Singulair] 10 mg tablet 10 mg PO DAILY Qty: 90 3RF fluticasone propion-salmeterol 250-50 mcg/dose blister with device 1 inh inhalation BID Qty: 180 3RF Rx Instructions: rinse mouth with water, gargle and spit after each use; use nystatin mouthwash 2x/week betamethasone valerate 0.1 % cream 1 applic topical DAILY PRN (Reason: itching) Qty: 45 1RF dicyclomine 20 mg tablet 20 mg PO QID PRN (Reason: abdominal pain) Qty: 90 0RF fluocinonide 0.05 % solution 1 applic topical BID Qty: 20 1RF hydroxyzine HCl 10 mg tablet 10 mg PO ONCE PRN (Reason: itching) Qty: 90 0RF buspirone 5 mg tablet See Rx Instructions PO BID Qty: 60 0RF Rx Instructions: take 1 tab twice daily. If ineffective can increase to 2 tablets twice daily for a total of 10 mg twice daily. cholecalciferol (vitamin D3) 25 mcg (1,000 unit) capsule 25 mcg PO DAILY Qty: 90 3RF omeprazole 20 mg capsule,delayed release(DR/EC) 20 mg PO DAILY PRN Referrals: Juan David De La Fuente MD [Primary Care Provider, Family Practice] Stand Alone Forms: Patient Portal/API
--- NOTE | 2025-06-24 14:19 | DI.RAD.S_ITS ---
PROCEDURE: XR CHEST 2V INDICATIONS: sob TECHNIQUE: 2 views of the chest were acquired. COMPARISON: [facility] ([place]), CR, XR CHEST 2V, 06/04/2025, 15:04. [facility] ([place]), CR, XR CHEST 2V, 01/15/2024, 10:21. FINDINGS: Surgical changes and devices: None. Lungs and pleura: Lungs are clear. No pleural effusions or pneumothorax. Mediastinum: Mediastinal contours are normal. Heart size is normal. Bones and chest wall: No suspicious bony abnormalities. Soft tissues appear unremarkable. IMPRESSION: No acute cardiopulmonary abnormality is seen. Dictated by: Pawan Hopkins M.D. on 06/24/2025 at 14:52 Approved by: Pawan Hopkins M.D. on 06/24/2025 at 14:53
[2025-06-24 14:21] LABS: Add Manual Diff / Slide Review NO; Hematocrit 37.8 % (36-46); Hemoglobin 13.0 g/dL (12.0-16.0); Lymphocytes Absolute Auto 1400 /uL (1100-4500); Mean Corpuscular HGB Conc 34.4 % (30-36); Mean Corpuscular Hemoglobin 29.9 PG (26-34); Mean Corpuscular Volume 87.0 fL (80-100); Platelet Count 257 X10^3/uL (150-400)
[2025-06-24 14:24] LABS: INR 0.9 (0.9-1.3); Prothrombin Time 10.6 SECONDS (9.4-12.5)
[2025-06-24 14:27] LABS: PTT Partial Thromboplastin Tim 31 SECONDS (25.1-36.5)
[2025-06-24 14:32] LABS: Alanine Aminotransferase 23 IU/L (<35); Albumin 4.3 g/dL (3.5-5.0); Albumin Globulin Ratio 1.7 (1.0-2.8); Alkaline Phosphatase 61 U/L (38-126); Blood Urea Nitrogen 11 mg/dL (7-17); Calcium 9.3 mg/dL (8.4-10.2); Carbon Dioxide 24 mmol/L (22-32); Chloride 103 mmol/L (98-107); Creatine Kinase 59 U/L (30-135); Estimated Glomerular Filt Rate > 60 mL/min (>60); Globulin 2.5 g/dL (1.7-4.1); Glucose 80 mg/dL (70-99); HEMOLYSIS 28 (0-50); Potassium 4.3 mmol/L (3.4-5.1); Sodium 134 mmol/L (137-145); Total Protein 6.8 g/dL (6.3-8.2)
[2025-06-24 14:43] LABS: Troponin I < 0.012 ng/mL (0.01-0.034)
[2025-06-24 14:52] LABS: Appearance Urine UA CLEAR; Bilirubin Urine UA NEGATIVE (NEGATIVE); Color Urine UA YELLOW; Glucose Urine UA NEGATIVE (Negative); Ketones Urine UA NEGATIVE (NEGATIVE); Leukocyte Esterase Urine UA NEGATIVE (NEGATIVE); Nitrite Urine UA NEGATIVE (Negative); Occult Blood Urine UA NEGATIVE (Negative); Protein Urine UA NEGATIVE (Negative); Specific Gravity Urine UA <=1.005 (1.000-1.035); Urobilinogen Urine UA 0.2 E.U./dL (0.2)
[2025-06-24 14:58] LABS: UR Morphine/Opiate cutoff 300 Negative (Negative); Ur Specific Gravity Normal (Normal); Urine MDMA Negative (Negative); Urine Methamphetamines Negative (Negative); Urine Tetrahydrocannabinol Negative (Negative); Urine Tricyclic Antidepressant Negative (Negative)
[2025-06-24 15:01] LABS: COVID19 -Nasal RAPID Negative (Negative)
[2025-06-24 15:03] LABS: pH Urine UA 7.0 (4.5-8.0)
[2025-06-24 15:04] LABS: Culture Indicated Urine Cult Not Indicated
[2025-06-24 15:09] VITALS: BP 170/81; PULSE 72; RESP 16; O2SAT 97
== END 2025-06-24 15:10 | disposition home or self-care (01) ==
PROVIDERS: Emergency Provider Family Medicine; Family Provider Family Medicine; PCP Family Medicine
DX: H53.30 Unspecified disorder of binocular vision (principal); R06.02 Shortness of breath
CPT/HCPCS: 36415; 70450; 70496; 70498; 71046; 80053; 80305; 81001; 82550; 84484; 85025; 85610; 85730; 87635; 99284; Q9967